=== PATIENT | male | born 1985 | race Caucasian/White ===

== ENCOUNTER 2018-03-04 09:01 | Emergency (ER) | payer OTHER, MEDICARE ==
[2018-03-04 09:22] VITALS: BP 133/76
[2018-03-04] MEDS ORDERED: LIDOCAINE 2% VISCOUS SOLN 20 ML UDCUP PO ONE (09:30)
[2018-03-04] MEDS ORDERED: CLINDAMYCIN HCL 150 MG CAPSULE PO ONE (09:34)
--- NOTE | 2018-03-04 09:36 | ER Document Report ---
ED Oral Problem - General Chief Complaint: Toothache Stated Complaint: TOOTHACHE Time Seen by Provider: 03/04/18 09:26 Mode of Arrival: Ambulatory Information source: Patient Notes: 33-year-old male presents to ED for complaint of dental pain to tooth #29 and 30. He also has a little abscess between the 2 teeth on the outer gum. He states he is planning to call the [place] clinic today to schedule a dental appointment but he knows that he will need antibiotics before he goes. Patient is alert oriented speaks in full sentences respirations regular and unlabored walks with a even steady gait. TRAVEL OUTSIDE OF THE [place] IN LAST 30 DAYS: No - HPI Patient complains to provider of: Jaw pain, Swelling of jaw, Toothache Onset: Other - States broken tooth is been for about a year the swelling to the jaw has been about a month and a little abscess has been about a week Onset: Gradual Quality of pain: Sharp, Throbbing Pain Level: 1 Associated symptoms: Toothache Worsened by: Cold Relieved by: Nothing Similar symptoms previously: Yes Recently seen / treated by doctor/dentist: No - Related Data Allergies/Adverse Reactions: acetaminophen [From Tylenol] Adverse Reaction (Verified 03/04/18 09:02) Past Medical History - General Information source: Patient - Social History Smoking Status: Never Smoker Cigarette use (# per day): No Chew tobacco use (# tins/day): No Smoking Education Provided: No Frequency of alcohol use: None Drug Abuse: None Lives with: Family Family History: Reviewed & Not Pertinent Patient has suicidal ideation: No Patient has homicidal ideation: No - Past Medical History Cardiac Medical History: Reports: None Pulmonary Medical History: Reports: None EENT Medical History: Reports: None Neurological Medical History: Reports: None Endocrine Medical History: Reports: None Renal/ Medical History: Reports: None Malignancy Medical History: Reports None GI Medical History: Reports: None Musculoskeltal Medical History: Reports Hx Arthritis, Reports Hx Musculoskeletal Deformity, Reports Hx Musculoskeletal Trauma Skin Medical History: Reports None Psychiatric Medical History: Reports: Hx Post Traumatic Stress Disorder Traumatic Medical History: Reports: Hx Traumatic Brain Injury Infectious Medical History: Reports: None - Immunizations Immunizations up to date: Yes Review of Systems - Review of Systems Constitutional: No symptoms reported EENT: Mouth pain, Dental problem Cardiovascular: No symptoms reported Respiratory: No symptoms reported Gastrointestinal: No symptoms reported Genitourinary: No symptoms reported Male Genitourinary: No symptoms reported Musculoskeletal: No symptoms reported Skin: No symptoms reported Hematologic/Lymphatic: No symptoms reported Neurological/Psychological: No symptoms reported Physical Exam - Vital signs Vitals: Temp Pulse Resp BP Pulse Ox 98.4 F 71 20 133/76 H 97 03/04/18 09:20 03/04/18 09:20 03/04/18 09:20 03/04/18 09:20 03/04/18 09:20 Interpretation: Normal - General General appearance: Appears well, Alert - HEENT Head: Normocephalic, Atraumatic Eyes: Normal Pupils: PERRL Ears: Normal External canal: Normal Tympanic membrane: Normal Sinus: Normal Nasal: Normal Mouth/Lips: Caries - Caries to tooth #19 and 20 with small abscess between the 2 teeth on the lateral aspect of the jaw mild swelling to the jaw Pharynx: Normal Neck: Anterior cervical chain - Respiratory Respiratory status: No respiratory distress Chest status: Nontender Breath sounds: Normal Chest palpation: Normal - Cardiovascular Rhythm: Regular Heart sounds: Normal auscultation Murmur: No - Abdominal Inspection: Normal Distension: No distension Bowel sounds: Normal Tenderness: Nontender Organomegaly: No organomegaly - Back Back: Normal, Nontender - Extremities General upper extremity: Normal inspection, Nontender, Normal color, Normal ROM , Normal temperature General lower extremity: Normal inspection, Nontender, Normal color, Normal ROM , Normal temperature, Normal weight bearing. No: Yoly's sign - Neurological Neuro grossly intact: Yes Cognition: Normal Orientation: AAOx4 Matthew Coma Scale Eye Opening: Spontaneous Montgomery Coma Scale Verbal: Oriented Matthew Coma Scale Motor: Obeys Commands Matthew Coma Scale Total: 15 Speech: Normal Motor strength normal: LUE, RUE, LLE, RLE Sensory: Normal - Psychological Associated symptoms: Normal affect, Normal mood - Skin Skin Temperature: Warm Skin Moisture: Dry Skin Color: Normal Course - Re-evaluation Re-evalutation: 03/04/18 09:47 Patient was treated with viscous lidocaine and clindamycin in the emergency room. An 18-gauge needle was used to open the abscess to the lateral aspect of the jaw. Patient was discharged home with prescription of clindamycin and a syringe of viscous lidocaine. After performing a Medical Screening Examination , I estimate there is LOW risk for a DEEP SPACE INFECTION (e.g., WILFRID'S ANGINA OR RETROPHARYNGEAL ABSCESS), MENINGITIS, INTRACRANIAL HEMORRHAGE, or AIRWAY COMPROMISE, thus I consider the discharge disposition reasonable. Also, there is no evidence or peritonitis, sepsis, or toxicity. I have reevaluated this patient multiple times and no significant life threatening changes are noted. The patient and I have discussed the diagnosis and risks, and we agree with discharging home with close follow-up with the understanding that symptoms and presentations can change. We also discussed returning to the Emergency Department immediately if new or worsening symptoms occur. We have discussed the symptoms which are most concerning (e.g., changing or worsening pain, trouble swallowing or breathing, neck stiffness or fever) that necessitate immediate return. - Vital Signs Vital signs: Temp Pulse Resp BP Pulse Ox 98.4 F 71 20 133/76 H 97 03/04/18 09:20 03/04/18 09:20 03/04/18 09:20 03/04/18 09:20 03/04/18 09:20 Discharge - Discharge Clinical Impression: Pain due to dental caries, Dental abscess Condition: Stable Disposition: HOME, SELF-CARE Instructions: Family Physicians / Practices Additional Instructions: TOOTHACHE: Your pain is due to dental decay. The tooth must be repaired in order for you to feel better. You will, therefore, be referred to a dentist. We do not have dentists on the staff at [facility]. Severe swelling or drainage around a tooth usually means a dental abscess. This also requires evaluation and treatment by the dentist, but antibiotics may be prescribed while awaiting dental treatment. You should be rechecked immediately if you develop major swelling of the face, increasing pain, a lump in the jaw or gums, headache, difficulty swallowing, or fever. I have given you a syringe of viscous lidocaine. You can put a small amount of this on your finger and rub it on the gum and tooth that is painful every 1-2 hours. This will also numb your lip and your tongue so be careful when chewing or eating. Please do not contaminate the rest of the syringe when you are doing this to wash her hands good before you put the lidocaine on your finger and after you do it thank you CLINDAMYCIN: You have been given a prescription for the antibiotic clindamycin. It is often prescribed for infections in the mouth, such as dental infections or abscesses, and for skin infections due to MRSA. It's important that you take all the medication, unless instructed otherwise by your physician. Failure to complete the entire course can result in relapse of your condition. Common side effects of antibiotics include nausea, intestinal cramping, or diarrhea. Women may develop vaginal yeast infections, and babies can get yeast (thrush) in the mouth following the use of antibiotics. Contact your physician if you develop significant side effects from this medication. Allergy to this antibiotic can result in hives, wheezing, faintness, or itching. If symptoms of allergy occur, stop the medication and call the doctor. Salt and soda solution 1 quart of water 1 tablespoon of salt 1 teaspoon of baking soda Mixed 3 ingredients together and boil for 1 minute Placed in a covered quart jar Use 1/2 ounce of cold solution to gargle 3 times a day FOLLOW-UP CARE: You have been referred for follow-up care to the dentists listed below. Call the dentists office for an appointment as you were instructed or within the next two days. If you experience worsening or a significant change in your symptoms, notify the physician immediately or return to the Emergency Department at any time for re-evaluation. [facility] [address] [place], [place] [facility] [address] [place] [address] [facility]ly [facility] [address] [facility] [address] [facility] [place] [facility] [address] [email or web address] [address] [place] [address] Thursday- 8:00am to 5:00 pm Will see patients from other [facility]. Charges based on income and family size and accepts Medicare, Medicaid, and Insurances Will pull molars [facility] [place] [id number] Hours of Operation 8:00 am - 4:30 pm weekdays The following dental offices accept Medicaid: [facility] Dr. Cab[address] Dr[address] Weathers Dr. Doty Dr. Ochoa Charles Hernandez, Juan J, and [place] [facility] Dr. Melendrez ([place]) Dr. Carreon ([place]) [facility] Drs. Chaparro ([place]) Dr. Hernandez ([place]) [facility] Dr. Carr ([place]) Drs. Rose and ([place]) Medicaid Care Line Prescriptions: Clindamycin HCl 300 mg PO QID #28 capsule Forms: Elevated Blood Pressure
== END 2018-03-04 09:47 | disposition home or self-care (01) ==
LOC: ER 09:01
PROC: 0C96XZZ Drainage of Lower Gingiva, External Approach (ICD-10-PCS; principal; 2018-03-04)
DX: K04.7 Periapical abscess without sinus (principal); K08.9 Disorder of teeth and supporting structures, unspecified; R68.84 Jaw pain; Z88.6 Allergy status to analgesic agent
CPT/HCPCS: 99282; 41800; J3490

== ENCOUNTER 2019-12-01 10:12 | Emergency (ER) | payer OTHER, MEDICARE ==
[2019-12-01 10:20] VITALS: BP 142/86
--- NOTE | 2019-12-01 11:16 | ER Document Report ---
HPI - HPI Time Seen by Provider: 12/01/19 11:02 Onset: Other - This is a 34-year-old male who presented to the emergency room today stating he had dental discomfort to the left upper premolar area. He has had this intermittently for a period of approximately 6 months. He has no difficulty drinking swallowing taking fluids no periorbital inflammation. Onset/Duration: Intermittent Quality of pain: Achy Pain Level: 3 Associated Symptoms: None. denies: Fever, Nausea, Vomiting, Shortness of breath Exacerbated by: denies: Denies Similar symptoms previously: Yes - ROS Systems Reviewed and Negative: Yes All other systems reviewed and negative - CONSTITUTIONAL Constitutional: DENIES: Fever, Chills Past Medical History - General Information source: Patient - Social History Smoking Status: Never Smoker Frequency of alcohol use: None Drug Abuse: None Family History: Reviewed & Not Pertinent Patient has suicidal ideation: No Patient has homicidal ideation: No Renal/ Medical History: Denies: Hx Peritoneal Dialysis Musculoskeletal Medical History: Reports Hx Arthritis, Reports Hx Musculoskeletal Deformity, Reports Hx Musculoskeletal Trauma Psychiatric Medical History: Reports: Hx Attention Deficit Hyperactivity Disorder, Hx Post Traumatic Stress Disorder Traumatic Medical History: Reports: Hx Traumatic Brain Injury - Immunizations Immunizations up to date: Yes Vertical Provider Document - CONSTITUTIONAL Agree With Documented VS: Yes Exam Limitations: No Limitations - INFECTION CONTROL TRAVEL OUTSIDE OF THE [place] IN LAST 30 DAYS: No Course - Re-evaluation Re-evalutation: 12/01/19 11:18 Again is a 34-year-old male who presents to the emergency room today with dentalgia. He does have a history of dental discomfort to the affected area no difficulty breathing no difficulty swallowing he has appointment on the of this month. - Vital Signs Vital signs: Temp Pulse Resp BP Pulse Ox 97.7 F 72 16 142/86 H 99 12/01/19 10:19 12/01/19 10:19 12/01/19 10:19 12/01/19 10:19 12/01/19 10:19 Discharge - Discharge Clinical Impression: Dentalgia Condition: Good Disposition: HOME, SELF-CARE Instructions: Toothache ([facility]) Prescriptions: Amoxicillin/Potassium Clav [Augmentin 875-125 Tablet] 1 tab PO Q12 #28 tablet
== END 2019-12-01 11:38 | disposition home or self-care (01) ==
LOC: ER 10:12
DX: K08.89 Other specified disorders of teeth and supporting structures (principal)
CPT/HCPCS: 99282